=== PATIENT | male | born 1960 | race American Indian/Alaskan Native ===

== ENCOUNTER 2019-04-03 11:07 | Inpatient (IN) | payer OTHER ==
--- NOTE | 2019-04-03 11:28 | Emergency Department Report ---
ED Seizure HPI - General Chief Complaint: Seizure Stated Complaint: SEIZURE/AMS Time Seen by Provider: 04/03/19 11:23 Source: EMS Mode of arrival: Stretcher Limitations: Altered Mental Status - History of Present Illness Initial Comments: Patient is a 59-year-old male that presents emergency room with complaints of altered mental status and seizure. Patient is currently alert and oriented 2. Patient answers most questions appropriate. Patient is confused on situation and date. Patient states she does not report having a seizure. Patient states he doesn't have a seizure history. Patient states she's never sees. Patient denies other symptoms. Patient denies pain. EMS report received. EMS states the patient was at work sitting in his car outside of work and began having a seizure in his car. EMS states that the seizure was witnessed by his coworkers. Patient was postictal initially and mentally responsive upon arrival by EMS. EMS brought the patient to the hospital. No meds were given by EMS. No active seizure activity noted by EMS. MD Complaint: seizure, loss of consciousness, shaking -: Sudden Description of Episode: loss of consciousness, tonic-clonic movement Witnessed:: Yes Trauma: No Seizure History: none Place: work Possible Precipitating Event: none Associated Symptoms: denies other symptoms, confusion. denies: chest pain, cough, diaphoresis, fever/chills, loss of appetite, malaise, rash, shortness of breath, syncope, weakness, tongue injury, shoulder dislocation Treatments Prior to Arrival: none - Related Data Home Medications Medication Instructions Recorded Confirmed Last Taken No Known Home Medications [No 04/03/19 04/03/19 Unknown Reported Home Medications] Allergies Allergy/AdvReac Type Severity Reaction Status Date / Time No Known Allergies Allergy Unverified 04/03/19 13:12 ED Review of Systems ROS: Stated complaint: SEIZURE/AMS Other details as noted in HPI Constitutional: denies: chills, fever Eyes: denies: eye pain, eye discharge, vision change ENT: denies: ear pain, throat pain Respiratory: denies: cough, shortness of breath, wheezing Cardiovascular: denies: chest pain, palpitations Endocrine: no symptoms reported Gastrointestinal: denies: abdominal pain, nausea, diarrhea Genitourinary: denies: urgency, dysuria Musculoskeletal: denies: back pain, joint swelling, arthralgia Skin: denies: rash, lesions Neurological: denies: headache, weakness, paresthesias Psychiatric: denies: anxiety, depression Hematological/Lymphatic: denies: easy bleeding, easy bruising ED Past Medical Hx - Past Medical History Previous Medical History?: No - Surgical History Past Surgical History?: No - Social History Smoking Status: Never Smoker Substance Use Type: Alcohol - Medications Home Medications: Home Medications Medication Instructions Recorded Confirmed Last Taken Type No Known Home Medications [No 04/03/19 04/03/19 Unknown History Reported Home Medications] ED Physical Exam - General Limitations: Altered Mental Status General appearance: alert, in no apparent distress - Head Head exam: Present: atraumatic, normocephalic - Eye Eye exam: Present: normal appearance - ENT ENT exam: Present: mucous membranes moist - Neck Neck exam: Present: normal inspection - Respiratory Respiratory exam: Present: normal lung sounds bilaterally. Absent: respiratory distress - Cardiovascular Cardiovascular Exam: Present: regular rate, normal rhythm. Absent: systolic murmur, diastolic murmur, rubs, gallop - GI/Abdominal GI/Abdominal exam: Present: soft, normal bowel sounds - Rectal Rectal exam: Present: deferred - Extremities Exam Extremities exam: Present: normal inspection - Back Exam Back exam: Present: normal inspection - Neurological Exam Neurological exam: Present: alert, altered, CN II-XII intact - Psychiatric Psychiatric exam: Present: normal affect, normal mood - Skin Skin exam: Present: warm, dry, intact, normal color. Absent: rash ED Course Vital Signs 04/03/19 04/03/19 11:15 13:33 Temperature 98 F Pulse Rate 91 H 90 Respiratory 16 16 Rate Blood Pressure 145/80 Blood Pressure 137/85 [Right] O2 Sat by Pulse 100 100 Oximetry - Reevaluation(s) Reevaluation #1: I discussed all results with patient. Patient agrees plan of care and a dmission. Patient to be admitted to the hospitalist service. 04/03/19 14:29 - Consultations Consultation #1: hospitalists consult. Hospitalist to admit. Bridge orders placed 04/03/19 14:29 ED Medical Decision Making - Lab Data Result diagrams: 04/03/19 13:45 04/03/19 13:45 - EKG Data -: EKG Interpreted by Me EKG shows normal: sinus rhythm, axis, intervals, QRS complexes, ST-T waves Rate: normal - Radiology Data Radiology results: report reviewed, image reviewed CT head/brain wo con INDICATION: Seizure. TECHNIQUE: Routine CT head without contrast. All CT scans at this location are performed using CT dose reduction for ALARA by means of automated exposure control. COMPARISON: None. FINDINGS: BRAIN / INTRACRANIAL CONTENTS: No acute hemorrhage, mass effect, midline shift, or hydrocephalus. No appreciable acute large territorial or lacunar infarct. There is a tiny chronic lacunar infarct in the left frontal periventricular white matter. ORBITS: No significant abnormality of visualized orbits. SINUSES / MASTOIDS: No significant abnormality of visualized sinuses and mastoid air cells. ADDITIONAL FINDINGS: None. IMPRESSION: 1. No acute intracranial abnormality. - Medical Decision Making Is a 59-year-old male that was found in his car seizing by his cold. Patient brought in by EMS. Patient does not have a seizure history. Patient's initial evaluation. The patient was confused and altered. Patient had a new-onset seizure workup to include labs and CT scan. Labs and CT scans unremarkable. Patient admitted to the hospital service. - Differential Diagnosis new seizure. Altered mental status. Critical Care Time: Yes Critical care time in (mins) excluding proc time.: 35 Critical care attestation.: If time is entered above; I have spent that time in minutes in the direct care of this critically ill patient, excluding procedure time. Critical Care Time: 35 minutes ED Disposition Clinical Impression: New onset seizure, Seizure, Confusion Altered mental state Qualifiers: Altered mental status type: unspecified Qualified Code(s): R41.82 - Altered mental status, unspecified Disposition: DC-09 OP ADMIT IP TO THIS HOSP Is pt being admited?: Yes Does the pt Need Aspirin: No Condition: Critical Referrals: PRIMARY CARE, [Primary Care Provider] - 3-5 Days Time of Disposition: 14:59
[2019-04-03] MEDS ORDERED: levETIRAcetam 1000 MG/NS 0.75% 1,000 MG/100 ML BAG IV ONE (12:47)
[2019-04-03] MEDS ORDERED: SODIUM CHLORIDE 0.9% 1000 ML 1,000 ML IV ONE (12:47)
[2019-04-03 13:53] LABS: Bilirubin,Urine NEG (Negative); Blood,Urine NEG (Negative); Color,Urine Yellow (Yellow); Mucus,Urine FEW /HPF; Protein,Urine <15 mg/dL mg/dL (Negative); Urobilinogen,Urine < 2.0 mg/dL (<2.0)
[2019-04-03 14:00] LABS: Basophils % (Auto) 0.3 % (0.0-1.8); Eosinophils % (Auto) 0.6 % (0.0-4.3); Hemoglobin 14.6 gm/dl (11.8-15.2); Lymphocytes # (Auto) 0.9 K/mm3 (1.2-5.4); Lymphocytes % (Auto) 10.5 % (13.4-35.0); Mean Corpuscular HGB Conc 34 % (32-34); Mean Corpuscular Volume 91 fl (84-94); Monocytes # (Auto) 0.4 K/mm3 (0.0-0.8); Monocytes % (Auto) 4.4 % (0.0-7.3); Platelet Count 186 K/mm3 (140-440); Red Blood Count 4.72 M/mm3 (3.65-5.03)
[2019-04-03 14:10] LABS: Amphetamine Screen,Urine PRESUMPTIVE NEGATIVE; Benzodiazepines Screen,Urine PRESUMPTIVE NEGATIVE; Cannabinoid Screen,Urine PRESUMPTIVE NEGATIVE; Cocaine Screen,Urine PRESUMPTIVE NEGATIVE; Methadone Screen,Urine PRESUMPTIVE NEGATIVE; Opiate Screen,Urine PRESUMPTIVE NEGATIVE
[2019-04-03 14:23] LABS: Alanine Aminotransferase 20 units/L (7-56); Albumin 4.5 g/dL (3.9-5); BUN/Creatinine Ratio 10; Blood Urea Nitrogen 11 mg/dL (9-20); Hemolysis Index 6
--- NOTE | 2019-04-03 14:50 | Cat Scan Report ---
CT head/brain wo con INDICATION: Seizure. TECHNIQUE: Routine CT head without contrast. All CT scans at this location are performed using CT dos e reduction for ALARA by means of automated exposure control. COMPARISON: None. FINDINGS: BRAIN / INTRACRANIAL CONTENTS: No acute hemorrhage, mass effect, midline shift, or hydrocephalus. No appreciable acute large territorial or lacunar infarct. There is a tiny chronic lacunar infarct in th e left frontal periventricular white matter. ORBITS: No significant abnormality of visualized orbits. SINUSES / MASTOIDS: No significant abnormality of visualized sinuses and mastoid air cells. ADDITIONAL FINDINGS: None. IMPRESSION: 1. No acute intracranial abnormality. Signer Name: Akhil Rodgers MD Signed: 04/03/2019 2:45 PM Workstation Name: [id number]
[2019-04-03] MEDS ORDERED: HYDROmorphone 1 MG/1 ML INJ IV PRN (20:57)
[2019-04-03] MEDS ORDERED: oxyCODONE /ACETAMINOPHEN 5-325MG TAB PO PRN (20:57)
[2019-04-03] MEDS ORDERED: ACETAMINOPHEN 325 MG TAB PO PRN (20:57)
[2019-04-03] MEDS ORDERED: ZOLPIDEM 5 MG TAB PO PRN (20:57)
[2019-04-03] MEDS ORDERED: ONDANSETRON 4 MG/2 ML INJ IV PRN (20:57)
--- NOTE | 2019-04-03 20:57 | Event Note ---
Date: 04/03/19 See history and physical in the reports New onset Seizures.
[2019-04-04] MEDS: levETIRAcetam 750 MG in DEXTROSE 5% IN WATER 100 ML IV SCH ×3 (00:06→21:50)
[2019-04-04] MEDS: ENOXAPARIN 40 MG/0.4 ML INJ SUB-Q SCH ×2 (00:48→09:54)
[2019-04-04 04:54] LABS: Basophils % (Auto) 0.4 % (0.0-1.8); Eosinophils # (Auto) 0.3 K/mm3 (0.0-0.4); Eosinophils % (Auto) 4.6 % (0.0-4.3); Hematocrit 39.7 % (35.5-45.6); Hemoglobin 13.3 gm/dl (11.8-15.2); Lymphocytes # (Auto) 1.8 K/mm3 (1.2-5.4); Lymphocytes % (Auto) 31.2 % (13.4-35.0); Mean Corpuscular HGB Conc 33 % (32-34); Mean Corpuscular Volume 92 fl (84-94); Monocytes # (Auto) 0.4 K/mm3 (0.0-0.8); Monocytes % (Auto) 6.8 % (0.0-7.3); Platelet Count 167 K/mm3 (140-440); Red Blood Count 4.35 M/mm3 (3.65-5.03); Red Cell Distribution Width 13.7 % (13.2-15.2)
[2019-04-04 05:18] LABS: Albumin 3.8 g/dL (3.9-5); BUN/Creatinine Ratio 9; Blood Urea Nitrogen 9 mg/dL (9-20); Calcium 8.8 mg/dL (8.4-10.2); Hemolysis Index 91
[2019-04-04 05:52] LABS: Alanine Aminotransferase 19 units/L (7-56)
[2019-04-04] MEDS: SODIUM CHLORIDE 0.9% 1000 ML 1,000 ML IV SCH ×2 (07:27→23:38)
--- NOTE | 2019-04-04 08:14 | History and Physical Report ---
CHIEF COMPLAINT: New onset seizures one hour ago. HISTORY OF PRESENT ILLNESS: A 59-year-old male with no significant past medical history apparently had a seizures which were tonic-clonic in nature. The patient was at work sitting in his car outside of work and began having seizures in his car. The seizure was witnessed by his coworkers. The patient was confused after the seizures. No tongue biting. Seizures lasted for about 1 minute. The patient was brought in by EMS. The patient alert and talking well during my examination. PAST MEDICAL HISTORY: None. PAST SURGICAL HISTORY: None. SOCIAL HISTORY: Does not smoke. Alcohol was occasionally. FAMILY HISTORY: Hypertension. REVIEW OF SYSTEMS: Significant for new onset seizures 1 hour ago prior to admission to the Emergency Room. Tonic-clonic in nature as per description by the coworkers. Otherwise, review of systems negative. No confusion. PHYSICAL EXAMINATION: GENERAL: A young elderly male, cooperative during examination. VITAL SIGNS: Temperature is 97.9, pulse is 51, respirations are 20, blood pressure 109/84. HEENT: Unremarkable. Pupils equal and reactive. NECK: Supple. No lymphadenopathy, no thyromegaly. LUNGS: Clear to auscultation and percussion. Good air entry. CARDIOVASCULAR: S1, S2 heard. No gallop, no murmur, no rub. Apical impulse in left fifth intercostal space and midclavicular line. ABDOMEN: Soft and benign. No hepatosplenomegaly. No guarding, no rigidity. Hernial orifices are normal. EXTREMITIES: Good pedal pulses. No pedal edema. CENTRAL NERVOUS SYSTEM: Alert and oriented x 4, nonfocal exam. SKIN: Normal. LABORATORY AND IMAGING STUDIES: White count is 8400, H and H is 14.6, hematocrit is 43. Electrolytes are normal. Glucose is 149. A1c is 5.3. Urine is negative. CT of the head is no acute findings. ASSESSMENT AND PLAN: 1. New onset seizures. The patient initiated on IV Keppra. The main issue is that the patient cannot drive being on anti-seizure medications. We will defer to Neurology. Neurology consult requested. The patient may need EEG studies. Continue IV Keppra to be transitioned to p.o. Keppra tomorrow. 2. Deep venous thrombosis prophylaxis, Lovenox 40 mg subcutaneous daily. In summary, the patient has new onset seizures and no other comorbid problems like hypertension, diabetes. A1c is 5.3. JOB# [id number] VSCharlie/VANNESSA HONG
--- NOTE | 2019-04-04 16:32 | Progress Note ---
Assessment and Plan Assessment and plan: --New-onset seizures; Seizure precautions, Keppra initiated by admitting physician Follow up neurology evaluation and recommendations EEG, no driving, further w/u per neuro --Obesity; BMI 34.8 Patient advised weight reduction when medically stable --DVT prophylaxis; Lovenox Follow up neurology evaluation and recommendations Possible discharge in 1-2 days if stable Plan of care is reviewed with the patient and his nurse History Interval history: Patient seen and examined medical records reviewed Admitted with new onset seizures, no new episodes of seizures since admission Patient is alert awake oriented 3 No new complaints Vital signs reviewed Hospitalist Physical - Constitutional Vitals: Temp Pulse Resp BP Pulse Ox 98.2 F 59 L 16 112/55 99 04/04/19 11:16 04/04/19 11:16 04/04/19 11:16 04/04/19 11:16 04/04/19 11:16 General appearance: Present: no acute distress, well-nourished, obese - EENT Eyes: Present: PERRL, EOM intact - Neck Neck: Present: supple, normal ROM - Respiratory Respiratory effort: normal Respiratory: bilateral: diminished, negative: rales, rhonchi, wheezing - Cardiovascular Rhythm: regular Heart Sounds: Present: S1 & S2 - Extremities Extremities: no ischemia, No edema - Abdominal General gastrointestinal: soft, non-tender, non-distended, normal bowel sounds - Integumentary Integumentary: Present: clear, warm - Psychiatric Psychiatric: appropriate mood/affect, cooperative - Neurologic Neurologic: CNII-XII intact, moves all extremities Results - Labs CBC & Chem 7: 04/04/19 04:06 04/04/19 04:06 Labs: Laboratory Last Values WBC 5.7 K/mm3 (4.5-11.0) 04/04/19 04:06 RBC 4.35 M/mm3 (3.65-5.03) 04/04/19 04:06 Hgb 13.3 gm/dl (11.8-15.2) 04/04/19 04:06 Hct 39.7 % (35.5-45.6) 04/04/19 04:06 MCV 92 fl (84-94) 04/04/19 04:06 MCH 31 pg (28-32) 04/04/19 04:06 MCHC 33 % (32-34) 04/04/19 04:06 RDW 13.7 % (13.2-15.2) 04/04/19 04:06 Plt Count 167 K/mm3 (140-440) 04/04/19 04:06 Lymph % (Auto) 31.2 % (13.4-35.0) 04/04/19 04:06 Dupage % (Auto) 6.8 % (0.0-7.3) 04/04/19 04:06 Eos % (Auto) 4.6 % (0.0-4.3) H 04/04/19 04:06 Baso % (Auto) 0.4 % (0.0-1.8) 04/04/19 04:06 Lymph # 1.8 K/mm3 (1.2-5.4) 04/04/19 04:06 Dupage # 0.4 K/mm3 (0.0-0.8) 04/04/19 04:06 Eos # 0.3 K/mm3 (0.0-0.4) 04/04/19 04:06 Baso # 0.0 K/mm3 (0.0-0.1) 04/04/19 04:06 Seg Neutrophils % 57.0 % (40.0-70.0) 04/04/19 04:06 Seg Neutrophils # 3.2 K/mm3 (1.8-7.7) 04/04/19 04:06 Sodium 141 mmol/L (137-145) 04/04/19 04:06 Potassium 4.1 mmol/L (3.6-5.0) 04/04/19 04:06 Chloride 105.7 mmol/L (98-107) 04/04/19 04:06 Carbon Dioxide 22 mmol/L (22-30) 04/04/19 04:06 Anion Gap 17 mmol/L 04/04/19 04:06 BUN 9 mg/dL (9-20) 04/04/19 04:06 Creatinine 1.0 mg/dL (0.8-1.5) 04/04/19 04:06 Estimated GFR > 60 ml/min 04/04/19 04:06 BUN/Creatinine Ratio 9 % 04/04/19 04:06 Glucose 101 mg/dL (75-100) H 04/04/19 04:06 POC Glucose 149 (70-105) H 04/03/19 11:25 Hemoglobin A1c 5.3 % (4-6) 04/03/19 13:45 Calcium 8.8 mg/dL (8.4-10.2) 04/04/19 04:06 Total Bilirubin 0.30 mg/dL (0.1-1.2) 04/04/19 04:06 AST 34 units/L (5-40) 04/04/19 04:06 ALT 19 units/L (7-56) 04/04/19 04:06 Alkaline Phosphatase 77 units/L (35-129) 04/04/19 04:06 Total Protein 6.7 g/dL (6.3-8.2) 04/04/19 04:06 Albumin 3.8 g/dL (3.9-5) L 04/04/19 04:06 Albumin/Globulin Ratio 1.3 % 04/04/19 04:06 Urine Color Yellow (Yellow) 04/03/19 13:34 Urine Turbidity Clear (Clear) 04/03/19 13:34 Urine pH 6.0 (5.0-7.0) 04/03/19 13:34 Ur Specific Lorraine 1.015 (1.003-1.030) 04/03/19 13:34 Urine Protein <15 mg/dl mg/dL (Negative) 04/03/19 13:34 Urine Glucose (UA) Neg mg/dL (Negative) 04/03/19 13:34 Urine Ketones Neg mg/dL (Negative) 04/03/19 13:34 Urine Blood Neg (Negative) 04/03/19 13:34 Urine Nitrite Neg (Negative) 04/03/19 13:34 Urine Bilirubin Neg (Negative) 04/03/19 13:34 Urine Urobilinogen < 2.0 mg/dL (<2.0) 04/03/19 13:34 Ur Leukocyte Esterase Neg (Negative) 04/03/19 13:34 Urine WBC (Auto) 1.0 /HPF (0.0-6.0) 04/03/19 13:34 Urine RBC (Auto) 1.0 /HPF (0.0-6.0) 04/03/19 13:34 Urine Mucus Few /HPF 04/03/19 13:34 Urine Opiates Screen Presumptive negative 04/03/19 13:34 Urine Methadone Screen Presumptive negative 04/03/19 13:34 Ur Barbiturates Screen Presumptive negative 04/03/19 13:34 Ur Phencyclidine Scrn Presumptive negative 04/03/19 13:34 Ur Amphetamines Screen Presumptive negative 04/03/19 13:34 U Benzodiazepines Scrn Presumptive negative 04/03/19 13:34 Urine Cocaine Screen Presumptive negative 04/03/19 13:34 U Marijuana (THC) Screen Presumptive negative 04/03/19 13:34 Drugs of Abuse Note Disclamer 04/03/19 13:34 Plasma/Serum Alcohol < 0.01 % (0-0.07) 04/03/19 13:45 Active Medications - Current Medications Current Medications: Generic Name Dose Route Start Last Admin Trade Name Freq PRN Reason Stop Dose Admin Acetaminophen 650 mg 04/03/19 20:57 Tylenol PO Q4H PRN Pain MILD(1-3)/Fever >100.5/CAVAZOS Enoxaparin Sodium 40 mg 04/03/19 21:00 04/04/19 09:54 Enoxaparin SUB-Q 40 mg QDAY JHON Administration Hydromorphone HCl 0.5 mg 04/03/19 20:57 Dilaudid IV Q3H PRN Pain , Severe (7-10) Sodium Chloride 1,000 mls @ 75 mls/hr 04/03/19 21:00 04/04/19 07:27 Nacl 0.9% 1000 Ml IV 75 mls/hr DIRECT JHON Administration Levetiracetam 750 mg/ Dextrose 107.5 mls @ 400 mls/hr 04/03/19 22:00 04/04/19 09:54 IV 400 mls/hr Q12HR JHON Administration Ondansetron HCl 4 mg 04/03/19 20:57 Zofran IV Q3H PRN Nausea And Vomiting Oxycodone/Acetaminophen 1 tab 04/03/19 20:57 Percocet 5/325 PO Q6H PRN Pain, Moderate (4-6) Sodium Chloride 10 ml 04/03/19 22:00 04/04/19 09:55 Sodium Chloride Flush Syringe 10 Ml IV 10 ml BID JHON Administration Sodium Chloride 10 ml 04/03/19 20:57 Sodium Chloride Flush Syringe 10 Ml IV PRN PRN LINE FLUSH Zolpidem Tartrate 5 mg 04/03/19 20:57 Ambien PO QHS PRN Insomnia
--- NOTE | 2019-04-04 17:08 | Consultation ---
History of Present Illness Consult date: 04/04/19 Reason for Consult: Seizure Chief complaint: Seizure History of present illness: Patient is a 59 y/o man w/ no known PMH. He presented yesterday after reportedly having a generalized tonic clonic seizure while at work. Patient was sitting in his car at work, when he was seen by co-workers to be having a seizure, which lasted about 1 minute. He was then brought to [facility]. Patient continues to feel "wiped out" and tired, however has returned to baseline mental status. He does not have any history of seizures in the past. Patient states that he has been having new onset intermittent right temporal CAVAZOS over the past 2 months. CAVAZOS described as intermittent, mild, right temporal, no associated symptoms. Past History Past Medical History: No medical history Social history: Lives alone Family history: no significant family history Medications and Allergies Allergies Allergy/AdvReac Type Severity Reaction Status Date / Time No Known Allergies Allergy Unverified 04/03/19 13:12 Home Medications Medication Instructions Recorded Confirmed Last Taken Type No Known Home Medications [No 04/03/19 04/03/19 Unknown History Reported Home Medications] Active Meds: Active Medications Acetaminophen (Tylenol) 650 mg PO Q4H PRN PRN Reason: Pain MILD(1-3)/Fever >100.5/CAVAZOS Enoxaparin Sodium (Enoxaparin) 40 mg SUB-Q QDAY [facility] Last Admin: 04/04/19 09:54 Dose: 40 mg Documented by: Hydromorphone HCl (Dilaudid) 0.5 mg IV Q3H PRN PRN Reason: Pain , Severe (7-10) Sodium Chloride (Nacl 0.9% 1000 Ml) 1,000 mls @ 75 mls/hr IV DIRECT [facility] Last Admin: 04/04/19 07:27 Dose: 75 mls/hr Documented by: Levetiracetam 750 mg/ Dextrose 107.5 mls @ 400 mls/hr IV Q12HR [facility] Last Admin: 04/04/19 09:54 Dose: 400 mls/hr Documented by: Ondansetron HCl (Zofran) 4 mg IV Q3H PRN PRN Reason: Nausea And Vomiting Oxycodone/Acetaminophen (Percocet 5/325) 1 tab PO Q6H PRN PRN Reason: Pain, Moderate (4-6) Sodium Chloride (Sodium Chloride Flush Syringe 10 Ml) 10 ml IV BID JHON Last Admin: 04/04/19 09:55 Dose: 10 ml Documented by: Sodium Chloride (Sodium Chloride Flush Syringe 10 Ml) 10 ml IV PRN PRN PRN Reason: LINE FLUSH Zolpidem Tartrate (Ambien) 5 mg PO QHS PRN PRN Reason: Insomnia Review of Systems All systems: negative Neurological: seizures Physical Examination - Vital Signs Vital Signs: Vital Signs Temp Pulse Resp BP Pulse Ox 98 F 91 H 16 145/80 100 04/03/19 11:15 04/03/19 11:15 04/03/19 11:15 04/03/19 11:15 04/03/19 11:15 - Physical Exam Narrative exam: Patient is alert, awake, oriented x4, follows complex commands. PERRL, VFF, EOMI, no facial weakness noted, tongue midline, b/l intact to LT. B/l intact to LT in all extremities. 2+ reflexes throughout. 5/5 strength in all extremities. b/l intact to FTN and HTS. No dysarthria or aphasia noted. - Constitutional General appearance: comfortable - EENT EENT: Present: ATNC, PERRL, mucous membranes moist, hearing intact, vision intact - Respiratory Respiratory: Present: lungs clear, normal breath sounds - Cardiovascular Cardiovascular: Present: regular rate, normal S1, normal S2 Extremities: Present: no clubbing, cyanosis, no inflammation - Gastrointestinal Gastrointestinal: Present: normoactive bowel sounds, soft, non-tender - Integumentary Integumentary: Present: normal - Musculoskeletal Musculoskeletal: Present: no fluid collection, no pain - Psychiatric Psychiatric: Present: mood/affect appropriate Results - Laboratory Findings CBC and BMP: 04/04/19 04:06 04/04/19 04:06 Abnormal Lab Findings: Abnormal Labs 04/03/19 04/03/19 04/03/19 11:25 13:45 13:45 Lymph % (Auto) 10.5 L Eos % (Auto) Lymph # 0.9 L Seg Neutrophils % 84.2 H Carbon Dioxide 21 L Glucose POC Glucose 149 H Albumin 04/04/19 04/04/19 04:06 04:06 Lymph % (Auto) Eos % (Auto) 4.6 H Lymph # Seg Neutrophils % Carbon Dioxide Glucose 101 H POC Glucose Albumin 3.8 L Assessment and Plan Patient is a 59 y/o man w/ no known PMH. He presented yesterday after reportedly having a generalized tonic clonic seizure while at work. According to the patient's clinical findings, it is possible that he has had a seizure. Plan: 1. Seizure: - CT head unremarkable - EEG did not show any seizures or epileptiform activity - Discussed option of starting keppra at this time with patient, and he is agreeable to starting it. Discussed adverse effects, risks/benefits. - Keppra 750mg BID. - Check MRI brain w/wo, as patient has c/o recent onset of right temporal headaches. Also, new onset seizures at this age would warrant further imaging to rule out any intra-cranial etiology. - Discussed with patient regarding no driving until cleared by DMV/DPS, and patient understood and accepted this. Further discussed seizure precautions with patient. - If patient has seizure, recommend Ativan 1mg IV stat. Please call primary and neurology stat if patient has seizures. - Will continue to monitor patient. Thank you for allowing me to take part in the care of this patient. Efrem De La Rosa MD Neurology
--- NOTE | 2019-04-04 17:19 | Electroencephalogram Report ---
Electroencephalogram EEG Date of exam: 04/04/19 History: Patient is a 59 y/o man w/ no known PMH. He presented yesterday after reportedly having a generalized tonic clonic seizure while at work. Impression: 1. No seizures or epileptofirm activity noted 2. Significant movement artifact noted. Description: The waking background shows an appropriate organization with well-defined anterior posterior voltage and frequency gradients. Posteriorly, there is a well-developed alpha rhythm of [8] Hz which is symmetrical and bilaterally reactive. Anteriorly, there is a pattern of lower voltage and slightly irregular theta and beta range frequencies. During drowsiness, there is attenuation of the background rhythms. There is significant movement artifact noted. Photic stimulation and hyperventilation were not performed. Throughout, the recording there are no epileptiform abnormalities, focal or lateralizing features, or significant interhemispheric findings. Interpretation: A normal EEG does not rule out seizures. Recommend clinical correlation.
[2019-04-05 06:06] LABS: BUN/Creatinine Ratio 12; Blood Urea Nitrogen 11 mg/dL (9-20); Calcium 8.6 mg/dL (8.4-10.2); Hemolysis Index 102
[2019-04-05] MEDS: levETIRAcetam 750 MG in DEXTROSE 5% IN WATER 100 ML IV SCH ×2 (10:08→21:32)
[2019-04-05] MEDS: ENOXAPARIN 40 MG/0.4 ML INJ SUB-Q SCH (10:08)
--- NOTE | 2019-04-05 11:02 | Progress Note ---
Assessment and Plan Patient is a 59 y/o man w/ no known PMH. He presented yesterday after reportedly having a generalized tonic clonic seizure while at work. According to the patient's clinical findings, it is possible that he has had a seizure. Plan: 1. Seizure: - CT head unremarkable - EEG did not show any seizures or epileptiform activity - Discussed option of starting keppra at this time with patient, and he is agreeable to starting it. Discussed adverse effects, risks/benefits. - Cont. Keppra 750mg BID. - Check MRI brain w/wo, as patient has c/o recent onset of right temporal headaches. Also, new onset seizures at this age would warrant further imaging to rule out any intra-cranial etiology. - MRI pending. - Discussed with patient regarding no driving until cleared by DMV/DPS, and patient understood and accepted this. Further discussed seizure precautions with patient. - If patient has seizure, recommend Ativan 1mg IV stat. Please call primary and neurology stat if patient has seizures. - Will sign off as I am not covering the neurology service over the weekend. Recommend for neurologist covering weekend to be consulted for further neurologic monitoring and management. Thank you for allowing me to take part in the care of this patient. Efrem De La Rosa MD Neurology Subjective Date of service: 04/05/19 Principal diagnosis: Seizure Interval history: No acute events overnight. Objective - Exam Narrative Exam: Patient is alert, awake, oriented x4, follows complex commands. PERRL, VFF, EOMI, no facial weakness noted, tongue midline, b/l intact to LT. B/l intact to LT in all extremities. 2+ reflexes throughout. 5/5 strength in all extremities. b/l intact to FTN and HTS. No dysarthria or aphasia noted. - Vital Sign Vital Signs - 12hr 04/04/19 04/05/19 23:36 05:39 Temperature 98.1 F 98.0 F Pulse Rate 49 L 47 L Respiratory 18 18 Rate Blood Pressure 104/55 124/59 O2 Sat by Pulse 98 99 Oximetry - General Apperance Constitutional: comfortable - EENT EENT: ATNC, PERRL, mucous membranes moist, hearing intact, vision intact - Respiratory Respiratory: lungs clear, normal breath sounds - Cardiovascular Cardiovascular: regular rate, normal S1, normal S2 Extremities: no clubbing, cyanosis, no inflammation - Gastrointestinal Gastrointestinal: normoactive bowel sounds, soft, non-tender - Integumentary Integumentary: normal - Musculoskeletal Musculoskeletal: no fluid collection, no pain - Psychiatric Psychiatric: mood/affect appropriate - Laboratory Findings CBC and BMP: 04/04/19 04:06 04/05/19 Unknown Abnormal Lab Findings: Abnormal Labs 04/03/19 04/03/19 04/03/19 11:25 13:45 13:45 Lymph % (Auto) 10.5 L Eos % (Auto) Lymph # 0.9 L Seg Neutrophils % 84.2 H Chloride Carbon Dioxide 21 L Glucose POC Glucose 149 H Albumin 04/04/19 04/04/19 04/05/19 04:06 04:06 Unknown Lymph % (Auto) Eos % (Auto) 4.6 H Lymph # Seg Neutrophils % Chloride 107.3 H Carbon Dioxide Glucose 101 H POC Glucose Albumin 3.8 L
--- NOTE | 2019-04-05 11:54 | Magnetic Resonance Report ---
MRI BRAIN WITHOUT AND WITH CONTRAST INDICATION / CLINICAL INFORMATION: Seizure. TECHNIQUE: Multiplanar, multisequence MR images of the brain were obtained. Patient received 17 mL of IV ProHanc e. COMPARISON: Head CT dated 04/03/2019. FINDINGS: BRAIN / INTRACRANIAL CONTENTS: There is abnormal gyral swelling of the mesial left temporal lobe with increased T2/FLAIR signal. There are patchy foci of enhancement which appear to be cortically based in the region of signal abnormality, measuring up to about 8 mm. There is no associated restricted di ffusion. The remainder of the brain otherwise appears without acute abnormality. 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 There is mild chronic microangiopathic change in the cerebral white matter. CRANIOCERVICAL JUNCTION: No significant abnormality. VASCULAR FLOW-VOIDS: No significant abnormality. ORBITS: No significant abnormality of visualized orbits. SINUSES / MASTOIDS: No significant abnormality of visualized sinuses and mastoid air cells. ADDITIONAL FINDINGS: None. IMPRESSION: 1. Abnormal appearance of the mesial right temporal lobe with gyral swelling and edema as well as pat brando areas of cortical enhancement. Given the appearance, herpetic encephalitis needs to be excluded b y laboratory testing. Additionally, acyclovir should probably be administered pending laboratory resu lts. Other considerations would include status epilepticus, limbic encephalitis, and mesial temporal lobe neoplasm. Signer Name: Akhil Rodgers MD Signed: 04/05/2019 11:50 AM Workstation Name: [id number]
--- NOTE | 2019-04-05 14:56 | Progress Note ---
Assessment and Plan Assessment and plan: --New-onset seizures; no new episodes since admission Seizure precautions, Keppra initiated by admitting physician Follow up neurology evaluation and recommendations EEG, no driving, neurology following --Abnormal MRI findings; ? Herpetic encephalitis Consult ID, recommended stat lumbar puncture Further workup in progress --Obesity; BMI 34.8 Patient advised weight reduction when medically stable --DVT prophylaxis; Lovenox Follow ID evaluation and recommendations Possible discharge in 1-2 days if stable Plan of care is reviewed with the patient and his nurse History Interval history: Patient seen and examined medical records reviewed No new episodes of seizures, patient feels better Wants to go home, had MRI this morning. No new complaints Vital signs noted Hospitalist Physical - Constitutional Vitals: Temp Pulse Resp BP Pulse Ox 97.6 F 48 L 22 139/69 99 04/05/19 11:44 04/05/19 11:44 04/05/19 11:44 04/05/19 11:44 04/05/19 11:44 General appearance: Present: no acute distress, well-nourished, obese - EENT Eyes: Present: PERRL, EOM intact - Neck Neck: Present: supple, normal ROM - Respiratory Respiratory effort: normal Respiratory: bilateral: diminished, negative: rales, rhonchi, wheezing - Cardiovascular Rhythm: regular Heart Sounds: Present: S1 & S2 - Extremities Extremities: no ischemia, No edema Peripheral Pulses: within normal limits - Abdominal General gastrointestinal: soft, non-tender, non-distended, normal bowel sounds - Integumentary Integumentary: Present: clear, warm - Psychiatric Psychiatric: appropriate mood/affect, cooperative - Neurologic Neurologic: CNII-XII intact, moves all extremities Results - Labs CBC & Chem 7: 04/04/19 04:06 04/05/19 Unknown Labs: Laboratory Last Values WBC 5.7 K/mm3 (4.5-11.0) 04/04/19 04:06 RBC 4.35 M/mm3 (3.65-5.03) 04/04/19 04:06 Hgb 13.3 gm/dl (11.8-15.2) 04/04/19 04:06 Hct 39.7 % (35.5-45.6) 04/04/19 04:06 MCV 92 fl (84-94) 04/04/19 04:06 MCH 31 pg (28-32) 04/04/19 04:06 MCHC 33 % (32-34) 04/04/19 04:06 RDW 13.7 % (13.2-15.2) 04/04/19 04:06 Plt Count 167 K/mm3 (140-440) 04/04/19 04:06 Lymph % (Auto) 31.2 % (13.4-35.0) 04/04/19 04:06 [place] % (Auto) 6.8 % (0.0-7.3) 04/04/19 04:06 Eos % (Auto) 4.6 % (0.0-4.3) H 04/04/19 04:06 Baso % (Auto) 0.4 % (0.0-1.8) 04/04/19 04:06 Lymph # 1.8 K/mm3 (1.2-5.4) 04/04/19 04:06 [place] # 0.4 K/mm3 (0.0-0.8) 04/04/19 04:06 Eos # 0.3 K/mm3 (0.0-0.4) 04/04/19 04:06 Baso # 0.0 K/mm3 (0.0-0.1) 04/04/19 04:06 Seg Neutrophils % 57.0 % (40.0-70.0) 04/04/19 04:06 Seg Neutrophils # 3.2 K/mm3 (1.8-7.7) 04/04/19 04:06 Sodium 140 mmol/L (137-145) 04/05/19 Unknown Potassium 4.5 mmol/L (3.6-5.0) 04/05/19 Unknown Chloride 107.3 mmol/L (98-107) H 04/05/19 Unknown Carbon Dioxide 22 mmol/L (22-30) 04/05/19 Unknown Anion Gap 15 mmol/L 04/05/19 Unknown BUN 11 mg/dL (9-20) 04/05/19 Unknown Creatinine 0.9 mg/dL (0.8-1.5) 04/05/19 Unknown Estimated GFR > 60 ml/min 04/05/19 Unknown BUN/Creatinine Ratio 12 % 04/05/19 Unknown Glucose 91 mg/dL (75-100) 04/05/19 Unknown POC Glucose 149 (70-105) H 04/03/19 11:25 Hemoglobin A1c 5.3 % (4-6) 04/03/19 13:45 Calcium 8.6 mg/dL (8.4-10.2) 04/05/19 Unknown Magnesium 2.00 mg/dL (1.7-2.3) 04/05/19 Unknown Total Bilirubin 0.30 mg/dL (0.1-1.2) 04/04/19 04:06 AST 34 units/L (5-40) 04/04/19 04:06 ALT 19 units/L (7-56) 04/04/19 04:06 Alkaline Phosphatase 77 units/L (35-129) 04/04/19 04:06 Total Protein 6.7 g/dL (6.3-8.2) 04/04/19 04:06 Albumin 3.8 g/dL (3.9-5) L 04/04/19 04:06 Albumin/Globulin Ratio 1.3 % 04/04/19 04:06 Urine Color Yellow (Yellow) 04/03/19 13:34 Urine Turbidity Clear (Clear) 04/03/19 13:34 Urine pH 6.0 (5.0-7.0) 04/03/19 13:34 Ur Specific [place] 1.015 (1.003-1.030) 04/03/19 13:34 Urine Protein <15 mg/dl mg/dL (Negative) 04/03/19 13:34 Urine Glucose (UA) Neg mg/dL (Negative) 04/03/19 13:34 Urine Ketones Neg mg/dL (Negative) 04/03/19 13:34 Urine Blood Neg (Negative) 04/03/19 13:34 Urine Nitrite Neg (Negative) 04/03/19 13:34 Urine Bilirubin Neg (Negative) 04/03/19 13:34 Urine Urobilinogen < 2.0 mg/dL (<2.0) 04/03/19 13:34 Ur Leukocyte Esterase Neg (Negative) 04/03/19 13:34 Urine WBC (Auto) 1.0 /HPF (0.0-6.0) 04/03/19 13:34 Urine RBC (Auto) 1.0 /HPF (0.0-6.0) 04/03/19 13:34 Urine Mucus Few /HPF 04/03/19 13:34 Urine Opiates Screen Presumptive negative 04/03/19 13:34 Urine Methadone Screen Presumptive negative 04/03/19 13:34 Ur Barbiturates Screen Presumptive negative 04/03/19 13:34 Ur Phencyclidine Scrn Presumptive negative 04/03/19 13:34 Ur Amphetamines Screen Presumptive negative 04/03/19 13:34 U Benzodiazepines Scrn Presumptive negative 04/03/19 13:34 Urine Cocaine Screen Presumptive negative 04/03/19 13:34 U Marijuana (THC) Screen Presumptive negative 04/03/19 13:34 Drugs of Abuse Note Disclamer 04/03/19 13:34 Plasma/Serum Alcohol < 0.01 % (0-0.07) 04/03/19 13:45 Active Medications - Current Medications Current Medications: Generic Name Dose Route Start Last Admin Trade Name Freq PRN Reason Stop Dose Admin Acetaminophen 650 mg 04/03/19 20:57 Tylenol PO Q4H PRN Pain MILD(1-3)/Fever >100.5/CAVAZOS Enoxaparin Sodium 40 mg 04/03/19 21:00 04/05/19 10:08 Enoxaparin SUB-Q 40 mg QDAY JHON Administration Hydromorphone HCl 0.5 mg 04/03/19 20:57 Dilaudid IV Q3H PRN Pain , Severe (7-10) Sodium Chloride 1,000 mls @ 75 mls/hr 04/03/19 21:00 04/04/19 23:38 Nacl 0.9% 1000 Ml IV 75 mls/hr DIRECT JHON Administration Levetiracetam 750 mg/ Dextrose 107.5 mls @ 400 mls/hr 04/03/19 22:00 04/05/19 10:08 IV 400 mls/hr Q12HR JHON Administration Ondansetron HCl 4 mg 04/03/19 20:57 Zofran IV Q3H PRN Nausea And Vomiting Oxycodone/Acetaminophen 1 tab 04/03/19 20:57 Percocet 5/325 PO Q6H PRN Pain, Moderate (4-6) Sodium Chloride 10 ml 04/03/19 22:00 04/05/19 10:08 Sodium Chloride Flush Syringe 10 Ml IV 10 ml BID JHON Administration Sodium Chloride 10 ml 04/03/19 20:57 Sodium Chloride Flush Syringe 10 Ml IV PRN PRN LINE FLUSH Zolpidem Tartrate 5 mg 04/03/19 20:57 Ambien PO QHS PRN Insomnia
--- NOTE | 2019-04-05 15:01 | Consultation ---
History of Present Illness - Reason for Consult Consult date: 04/05/19 New onset seizure. Concern for herpetic encephalitis on MRI. Requesting physician: ALICIA IVY - History of Present Illness The patient is a 59-year-old male with no past medical history who presented to the hospital on 04/03/2019 after he had a seizure while at work. He has been experiencing a right-sided headache for the past few weeks. Denies fevers or chills. Denies any weight loss. Initial CT head was unremarkable. Was started on Keppra. Neurology was consulted, EEG did not show any seizures or epileptiform activity. MRI brain with and without contrast showed R temporal cortical enh ancement concerning for possible HSV encephalitis, hence infectious diseases was consulted. Denies any drug use. H/O heterosexual contact, no h/o STDs or HIV. Review of Systems: General: no fevers,chills or rigors HEENT: no new visual disturbance Respiratory: No cough, sputum, hemoptysis or shortness of breath Cardiovascular: No chest pain, syncope Gastrointestinal: No nausea, vomiting or diarrhea Genitourinary: No dysuria or hematuria Musculoskeletal: No new or worsening neck pain or back pain Neurologic: + headaches and seizures Hematologic: No easy bruising or bleeding Endocrine: No night sweats or acute weight loss Skin: negative for rash, jaundice Psychiatric: No suicidal or homicidal ideation Past History Past Medical History: No medical history Social history: Lives alone Family history: no significant family history Medications and Allergies Allergies Allergy/AdvReac Type Severity Reaction Status Date / Time No Known Allergies Allergy Unverified 04/03/19 13:12 Home Medications Medication Instructions Recorded Confirmed Last Taken Type No Known Home Medications [No 04/03/19 04/03/19 Unknown History Reported Home Medications] Active Meds: Active Medications Acetaminophen (Tylenol) 650 mg PO Q4H PRN PRN Reason: Pain MILD(1-3)/Fever >100.5/CAVAZOS Enoxaparin Sodium (Enoxaparin) 40 mg SUB-Q QDAY JHON Last Admin: 04/05/19 10:08 Dose: 40 mg Documented by: Hydromorphone HCl (Dilaudid) 0.5 mg IV Q3H PRN PRN Reason: Pain , Severe (7-10) Sodium Chloride (Nacl 0.9% 1000 Ml) 1,000 mls @ 75 mls/hr IV DIRECT [facility] Last Admin: 04/04/19 23:38 Dose: 75 mls/hr Documented by: Levetiracetam 750 mg/ Dextrose 107.5 mls @ 400 mls/hr IV Q12HR [facility] Last Admin: 04/05/19 10:08 Dose: 400 mls/hr Documented by: Ondansetron HCl (Zofran) 4 mg IV Q3H PRN PRN Reason: Nausea And Vomiting Oxycodone/Acetaminophen (Percocet 5/325) 1 tab PO Q6H PRN PRN Reason: Pain, Moderate (4-6) Sodium Chloride (Sodium Chloride Flush Syringe 10 Ml) 10 ml IV BID [facility] Last Admin: 04/05/19 10:08 Dose: 10 ml Documented by: Sodium Chloride (Sodium Chloride Flush Syringe 10 Ml) 10 ml IV PRN PRN PRN Reason: LINE FLUSH Zolpidem Tartrate (Ambien) 5 mg PO QHS PRN PRN Reason: Insomnia Physical Examination - Physical Exam Narrative exam: Physical Exam: Constitutional: Alert, cooperative. No acute distress Head, Ears, Nose: Normocephalic, atraumatic. External ears, nose normal Eyes: Conjunctivae/corneas clear. No icterus. No ptosis. Neck: Supple, no meningeal signs Oral: no thrush Cardiovascular: S1, S2 normal. Respiratory: Good air entry, clear to auscultation bilaterally GI: Soft, non-tender; bowel sounds normal. No peritoneal signs Musculoskeletal: No pedal edema, no cyanosis. Skin: No rash or abscess Hem/Lymphatic: No palpable cervical or supraclavicular nodes. No lymphangitis Psych: Mood ok. Affect normal Neurological: Awake, alert, oriented. No gross abnormality - Constitutional Vitals: Vital Signs Temp Pulse Resp BP Pulse Ox 97.6 F 48 L 22 139/69 99 04/05/19 11:44 04/05/19 11:44 04/05/19 11:44 04/05/19 11:44 04/05/19 11:44 Temperature -Last 24 Hours Temperature 97.6 F Temperature 98.0 F Temperature 98.1 F Temperature 99.0 F Results - Labs CBC & Chem 7: 04/04/19 04:06 04/05/19 Unknown Labs: Abnormal lab results 10/25/19 Range/Units Unknown Chloride 107.3 H (98-107) mmol/L - Imaging and Cardiology CT Scan - head: report reviewed, image reviewed (no acute abnormality noted.) MRI - head: report reviewed, image reviewed (Right temporal edema and patchy areas of cortical enhancement. ) Assessment and Plan Cultures: none A/P: 59-year-old male with no past medical history who presented to the hospital on 04/03/2019 after he had a seizure while at work: 1) New onset seizure with temporal lobe enhancement: Has no fever or leucocytosis. Headache has been ongoing for several weeks. 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 Recs: stat LP with CSF studies including CSF for HSV PCR (orders placed for CSF studies) HIV, RPR also ordered IV acyclovir started 10 mg/kg q8 hrs D/W Neurology (If CSF HSV PCR is negative, may need transfer for neurosurgery eval) and with Dr. Ivy. Nola Trejo MD, FACP [facility] C: [phone] O: [phone] F: [phone]
[2019-04-05 16:11] LABS: INR 1.03 (0.87-1.13)
[2019-04-05 16:12] LABS: Partial Thromboplastin Time 33.7 Sec. (24.2-36.6)
[2019-04-05] MEDS: SODIUM CHLORIDE 0.9% IV SCH ×2 (17:12→22:44)
[2019-04-05] MEDS: SODIUM CHLORIDE 0.9% 1000 ML 1,000 ML IV SCH (17:12)
[2019-04-05] MEDS: ACYCLOVIR IV SCH ×2 (17:12→22:44)
[2019-04-06] MEDS: SODIUM CHLORIDE 0.9% IV SCH ×3 (05:49→22:15)
[2019-04-06] MEDS: ACYCLOVIR IV SCH ×3 (05:49→22:15)
[2019-04-06] MEDS: ENOXAPARIN 40 MG/0.4 ML INJ SUB-Q SCH (09:39)
--- NOTE | 2019-04-06 10:24 | Progress Note ---
Assessment and Plan Assessment and plan: --Abnormal MRI findings; ? Herpetic encephalitis Consult ID, recommended stat lumbar puncture Further workup in progress --New-onset seizures; no new episodes since admission Seizure precautions, Keppra initiated by admitting physician Follow up neurology evaluation and recommendations EEG, no driving, neurology following --Obesity; BMI 34.8 Patient advised weight reduction when medically stable --DVT prophylaxis; Lovenox Follow ID evaluation and recommendations Possible discharge in 1-2 days if stable Plan of care is reviewed with the patient and his nurse History Interval history: Patient seen and examined medical records reviewed No new episodes of seizures Pending lumbar puncture on Monday Alert awake oriented 3 vital signs noted Hospitalist Physical - Constitutional Vitals: Temp Pulse Resp BP Pulse Ox 98.0 F 49 L 18 113/65 97 04/06/19 05:56 04/06/19 05:56 04/06/19 05:56 04/06/19 05:56 04/06/19 05:56 General appearance: Present: no acute distress, well-nourished, obese - EENT Eyes: Present: PERRL, EOM intact - Neck Neck: Present: supple, normal ROM - Cardiovascular Rhythm: regular Heart Sounds: Present: S1 & S2 - Extremities Extremities: no ischemia, No edema - Abdominal General gastrointestinal: soft, non-tender, non-distended, normal bowel sounds - Integumentary Integumentary: Present: clear, warm - Psychiatric Psychiatric: appropriate mood/affect, cooperative - Neurologic Neurologic: CNII-XII intact, moves all extremities Results - Labs CBC & Chem 7: 04/04/19 04:06 04/05/19 Unknown Labs: Laboratory Last Values WBC 5.7 K/mm3 (4.5-11.0) 04/04/19 04:06 RBC 4.35 M/mm3 (3.65-5.03) 04/04/19 04:06 Hgb 13.3 gm/dl (11.8-15.2) 04/04/19 04:06 Hct 39.7 % (35.5-45.6) 04/04/19 04:06 MCV 92 fl (84-94) 04/04/19 04:06 MCH 31 pg (28-32) 04/04/19 04:06 MCHC 33 % (32-34) 04/04/19 04:06 RDW 13.7 % (13.2-15.2) 04/04/19 04:06 Plt Count 167 K/mm3 (140-440) 04/04/19 04:06 Lymph % (Auto) 31.2 % (13.4-35.0) 04/04/19 04:06 [place] % (Auto) 6.8 % (0.0-7.3) 04/04/19 04:06 Eos % (Auto) 4.6 % (0.0-4.3) H 04/04/19 04:06 Baso % (Auto) 0.4 % (0.0-1.8) 04/04/19 04:06 Lymph # 1.8 K/mm3 (1.2-5.4) 04/04/19 04:06 [place] # 0.4 K/mm3 (0.0-0.8) 04/04/19 04:06 Eos # 0.3 K/mm3 (0.0-0.4) 04/04/19 04:06 Baso # 0.0 K/mm3 (0.0-0.1) 04/04/19 04:06 Seg Neutrophils % 57.0 % (40.0-70.0) 04/04/19 04:06 Seg Neutrophils # 3.2 K/mm3 (1.8-7.7) 04/04/19 04:06 PT 13.4 Sec. (12.2-14.9) 04/05/19 15:16 INR 1.03 (0.87-1.13) 04/05/19 15:16 APTT 33.7 Sec. (24.2-36.6) 04/05/19 15:16 Sodium 140 mmol/L (137-145) 04/05/19 Unknown Potassium 4.5 mmol/L (3.6-5.0) 04/05/19 Unknown Chloride 107.3 mmol/L (98-107) H 04/05/19 Unknown Carbon Dioxide 22 mmol/L (22-30) 04/05/19 Unknown Anion Gap 15 mmol/L 04/05/19 Unknown BUN 11 mg/dL (9-20) 04/05/19 Unknown Creatinine 0.9 mg/dL (0.8-1.5) 04/05/19 Unknown Estimated GFR > 60 ml/min 04/05/19 Unknown BUN/Creatinine Ratio 12 % 04/05/19 Unknown Glucose 91 mg/dL (75-100) 04/05/19 Unknown POC Glucose 149 (70-105) H 04/03/19 11:25 Hemoglobin A1c 5.3 % (4-6) 04/03/19 13:45 Calcium 8.6 mg/dL (8.4-10.2) 04/05/19 Unknown Magnesium 2.00 mg/dL (1.7-2.3) 04/05/19 Unknown Total Bilirubin 0.30 mg/dL (0.1-1.2) 04/04/19 04:06 AST 34 units/L (5-40) 04/04/19 04:06 ALT 19 units/L (7-56) 04/04/19 04:06 Alkaline Phosphatase 77 units/L (35-129) 04/04/19 04:06 Total Protein 6.7 g/dL (6.3-8.2) 04/04/19 04:06 Albumin 3.8 g/dL (3.9-5) L 04/04/19 04:06 Albumin/Globulin Ratio 1.3 % 04/04/19 04:06 Urine Color Yellow (Yellow) 04/03/19 13:34 Urine Turbidity Clear (Clear) 04/03/19 13:34 Urine pH 6.0 (5.0-7.0) 04/03/19 13:34 Ur Specific [place] 1.015 (1.003-1.030) 04/03/19 13:34 Urine Protein <15 mg/dl mg/dL (Negative) 04/03/19 13:34 Urine Glucose (UA) Neg mg/dL (Negative) 04/03/19 13:34 Urine Ketones Neg mg/dL (Negative) 04/03/19 13:34 Urine Blood Neg (Negative) 04/03/19 13:34 Urine Nitrite Neg (Negative) 04/03/19 13:34 Urine Bilirubin Neg (Negative) 04/03/19 13:34 Urine Urobilinogen < 2.0 mg/dL (<2.0) 04/03/19 13:34 Ur Leukocyte Esterase Neg (Negative) 04/03/19 13:34 Urine WBC (Auto) 1.0 /HPF (0.0-6.0) 04/03/19 13:34 Urine RBC (Auto) 1.0 /HPF (0.0-6.0) 04/03/19 13:34 Urine Mucus Few /HPF 04/03/19 13:34 Urine Opiates Screen Presumptive negative 04/03/19 13:34 Urine Methadone Screen Presumptive negative 04/03/19 13:34 Ur Barbiturates Screen Presumptive negative 04/03/19 13:34 Ur Phencyclidine Scrn Presumptive negative 04/03/19 13:34 Ur Amphetamines Screen Presumptive negative 04/03/19 13:34 U Benzodiazepines Scrn Presumptive negative 04/03/19 13:34 Urine Cocaine Screen Presumptive negative 04/03/19 13:34 U Marijuana (THC) Screen Presumptive negative 04/03/19 13:34 Drugs of Abuse Note Disclamer 04/03/19 13:34 Plasma/Serum Alcohol < 0.01 % (0-0.07) 04/03/19 13:45 Syphilis IgG Antibody Non-reactive (NonReactive) 04/05/19 15:16 Active Medications - Current Medications Current Medications: Generic Name Dose Route Start Last Admin Trade Name Freq PRN Reason Stop Dose Admin Acetaminophen 650 mg 04/03/19 20:57 Tylenol PO Q4H PRN Pain MILD(1-3)/Fever >100.5/CAVAZOS Enoxaparin Sodium 40 mg 04/03/19 21:00 04/06/19 09:39 Enoxaparin SUB-Q 40 mg QDAY JHON Administration Hydromorphone HCl 0.5 mg 04/03/19 20:57 Dilaudid IV Q3H PRN Pain , Severe (7-10) Sodium Chloride 1,000 mls @ 75 mls/hr 04/03/19 21:00 04/05/19 17:12 Nacl 0.9% 1000 Ml IV 75 mls/hr DIRECT JHON Administration Levetiracetam 750 mg/ Dextrose 107.5 mls @ 400 mls/hr 04/03/19 22:00 04/05/19 21:32 IV 400 mls/hr Q12HR JHON Administration Acyclovir 750 mg/ Sodium 265 mls @ 265 mls/hr 04/06/19 15:00 Chloride IV Q8HR JHON Protocol Ondansetron HCl 4 mg 04/03/19 20:57 Zofran IV Q3H PRN Nausea And Vomiting Oxycodone/Acetaminophen 1 tab 04/03/19 20:57 Percocet 5/325 PO Q6H PRN Pain, Moderate (4-6) Sodium Chloride 10 ml 04/03/19 22:00 04/06/19 09:40 Sodium Chloride Flush Syringe 10 Ml IV 10 ml BID JHON Administration Sodium Chloride 10 ml 04/03/19 20:57 Sodium Chloride Flush Syringe 10 Ml IV PRN PRN LINE FLUSH Zolpidem Tartrate 5 mg 04/03/19 20:57 Ambien PO QHS PRN Insomnia
[2019-04-06] MEDS: levETIRAcetam 750 MG in DEXTROSE 5% IN WATER 100 ML IV SCH ×2 (10:37→22:10)
[2019-04-06] MEDS: SODIUM CHLORIDE 0.9% 1000 ML 1,000 ML IV SCH (14:07)
[2019-04-07] MEDS: ACYCLOVIR IV SCH ×3 (05:48→22:04)
[2019-04-07] MEDS: SODIUM CHLORIDE 0.9% IV SCH ×3 (05:48→22:04)
[2019-04-07] MEDS: ENOXAPARIN 40 MG/0.4 ML INJ SUB-Q SCH (09:15)
--- NOTE | 2019-04-07 09:47 | Progress Note ---
Assessment and Plan Assessment and plan: --Abnormal MRI findings; ? Herpetic encephalitis Consult ID, recommended lumbar puncture, IV acyclovir, Fl Lumbar puncture could not be done during the weekend Scheduled for tomorrow, nothing by mouth from midnight DC Aydinx Coag test negative --New-onset seizures; no new episodes since admission Seizure precautions, Keppra initiated by admitting physician Follow up neurology evaluation and recommendations EEG, no driving, neurology following --Obesity; BMI 34.8 Patient advised weight reduction when medically stable --DVT prophylaxis; Lovenox Follow consults and recommendations Follow LP and CSF analysis Plan of care is reviewed with the patient and his nurse History Interval history: Sincerely and examined medical records reviewed Patient feels better and wants to go home Denies any headache or dizziness, no new episodes of seizure Vital signs noted Hospitalist Physical - Constitutional Vitals: Temp Pulse Resp BP Pulse Ox 97.9 F 65 18 144/87 96 04/07/19 04:47 04/07/19 04:47 04/07/19 04:47 04/07/19 04:47 04/07/19 04:47 General appearance: Present: no acute distress, well-nourished, obese - EENT Eyes: Present: PERRL, EOM intact - Neck Neck: Present: supple, normal ROM - Respiratory Respiratory effort: normal Respiratory: bilateral: diminished, negative: rales, rhonchi, wheezing - Cardiovascular Rhythm: regular Heart Sounds: Present: S1 & S2 - Extremities Extremities: no ischemia, No edema - Abdominal General gastrointestinal: soft, non-tender, non-distended, normal bowel sounds - Integumentary Integumentary: Present: clear, warm - Psychiatric Psychiatric: appropriate mood/affect, cooperative - Neurologic Neurologic: moves all extremities Results - Labs CBC & Chem 7: 04/04/19 04:06 04/05/19 Unknown Labs: Laboratory Last Values WBC 5.7 K/mm3 (4.5-11.0) 04/04/19 04:06 RBC 4.35 M/mm3 (3.65-5.03) 04/04/19 04:06 Hgb 13.3 gm/dl (11.8-15.2) 04/04/19 04:06 Hct 39.7 % (35.5-45.6) 04/04/19 04:06 MCV 92 fl (84-94) 04/04/19 04:06 MCH 31 pg (28-32) 04/04/19 04:06 MCHC 33 % (32-34) 04/04/19 04:06 RDW 13.7 % (13.2-15.2) 04/04/19 04:06 Plt Count 167 K/mm3 (140-440) 04/04/19 04:06 Lymph % (Auto) 31.2 % (13.4-35.0) 04/04/19 04:06 [place] % (Auto) 6.8 % (0.0-7.3) 04/04/19 04:06 Eos % (Auto) 4.6 % (0.0-4.3) H 04/04/19 04:06 Baso % (Auto) 0.4 % (0.0-1.8) 04/04/19 04:06 Lymph # 1.8 K/mm3 (1.2-5.4) 04/04/19 04:06 [place] # 0.4 K/mm3 (0.0-0.8) 04/04/19 04:06 Eos # 0.3 K/mm3 (0.0-0.4) 04/04/19 04:06 Baso # 0.0 K/mm3 (0.0-0.1) 04/04/19 04:06 Seg Neutrophils % 57.0 % (40.0-70.0) 04/04/19 04:06 Seg Neutrophils # 3.2 K/mm3 (1.8-7.7) 04/04/19 04:06 PT 13.4 Sec. (12.2-14.9) 04/05/19 15:16 INR 1.03 (0.87-1.13) 04/05/19 15:16 APTT 33.7 Sec. (24.2-36.6) 04/05/19 15:16 Sodium 140 mmol/L (137-145) 04/05/19 Unknown Potassium 4.5 mmol/L (3.6-5.0) 04/05/19 Unknown Chloride 107.3 mmol/L (98-107) H 04/05/19 Unknown Carbon Dioxide 22 mmol/L (22-30) 04/05/19 Unknown Anion Gap 15 mmol/L 04/05/19 Unknown BUN 11 mg/dL (9-20) 04/05/19 Unknown Creatinine 0.9 mg/dL (0.8-1.5) 04/05/19 Unknown Estimated GFR > 60 ml/min 04/05/19 Unknown BUN/Creatinine Ratio 12 % 04/05/19 Unknown Glucose 91 mg/dL (75-100) 04/05/19 Unknown POC Glucose 149 (70-105) H 04/03/19 11:25 Hemoglobin A1c 5.3 % (4-6) 04/03/19 13:45 Calcium 8.6 mg/dL (8.4-10.2) 04/05/19 Unknown Magnesium 2.00 mg/dL (1.7-2.3) 04/05/19 Unknown Total Bilirubin 0.30 mg/dL (0.1-1.2) 04/04/19 04:06 AST 34 units/L (5-40) 04/04/19 04:06 ALT 19 units/L (7-56) 04/04/19 04:06 Alkaline Phosphatase 77 units/L (35-129) 04/04/19 04:06 Total Protein 6.7 g/dL (6.3-8.2) 04/04/19 04:06 Albumin 3.8 g/dL (3.9-5) L 04/04/19 04:06 Albumin/Globulin Ratio 1.3 % 04/04/19 04:06 Urine Color Yellow (Yellow) 04/03/19 13:34 Urine Turbidity Clear (Clear) 04/03/19 13:34 Urine pH 6.0 (5.0-7.0) 04/03/19 13:34 Ur Specific [place] 1.015 (1.003-1.030) 04/03/19 13:34 Urine Protein <15 mg/dl mg/dL (Negative) 04/03/19 13:34 Urine Glucose (UA) Neg mg/dL (Negative) 04/03/19 13:34 Urine Ketones Neg mg/dL (Negative) 04/03/19 13:34 Urine Blood Neg (Negative) 04/03/19 13:34 Urine Nitrite Neg (Negative) 04/03/19 13:34 Urine Bilirubin Neg (Negative) 04/03/19 13:34 Urine Urobilinogen < 2.0 mg/dL (<2.0) 04/03/19 13:34 Ur Leukocyte Esterase Neg (Negative) 04/03/19 13:34 Urine WBC (Auto) 1.0 /HPF (0.0-6.0) 04/03/19 13:34 Urine RBC (Auto) 1.0 /HPF (0.0-6.0) 04/03/19 13:34 Urine Mucus Few /HPF 04/03/19 13:34 Urine Opiates Screen Presumptive negative 04/03/19 13:34 Urine Methadone Screen Presumptive negative 04/03/19 13:34 Ur Barbiturates Screen Presumptive negative 04/03/19 13:34 Ur Phencyclidine Scrn Presumptive negative 04/03/19 13:34 Ur Amphetamines Screen Presumptive negative 04/03/19 13:34 U Benzodiazepines Scrn Presumptive negative 04/03/19 13:34 Urine Cocaine Screen Presumptive negative 04/03/19 13:34 U Marijuana (THC) Screen Presumptive negative 04/03/19 13:34 Drugs of Abuse Note Disclamer 04/03/19 13:34 Plasma/Serum Alcohol < 0.01 % (0-0.07) 04/03/19 13:45 Syphilis IgG Antibody Non-reactive (NonReactive) 04/05/19 15:16 Active Medications - Current Medications Current Medications: Generic Name Dose Route Start Last Admin Trade Name Freq PRN Reason Stop Dose Admin Acetaminophen 650 mg 04/03/19 20:57 Tylenol PO Q4H PRN Pain MILD(1-3)/Fever >100.5/CAVAZOS Hydromorphone HCl 0.5 mg 04/03/19 20:57 Dilaudid IV Q3H PRN Pain , Severe (7-10) Sodium Chloride 1,000 mls @ 75 mls/hr 04/03/19 21:00 04/06/19 14:07 Nacl 0.9% 1000 Ml IV 75 mls/hr DIRECT JHON Administration Levetiracetam 750 mg/ Dextrose 107.5 mls @ 400 mls/hr 04/03/19 22:00 04/06/19 22:10 IV 400 mls/hr Q12HR JHON Administration Acyclovir 750 mg/ Sodium 265 mls @ 265 mls/hr 04/06/19 15:00 04/07/19 05:48 Chloride IV 265 mls/hr Q8HR JHON Administration Protocol Ondansetron HCl 4 mg 04/03/19 20:57 Zofran IV Q3H PRN Nausea And Vomiting Oxycodone/Acetaminophen 1 tab 04/03/19 20:57 Percocet 5/325 PO Q6H PRN Pain, Moderate (4-6) Sodium Chloride 10 ml 04/03/19 22:00 04/07/19 09:19 Sodium Chloride Flush Syringe 10 Ml IV 10 ml BID JHON Administration Sodium Chloride 10 ml 04/03/19 20:57 Sodium Chloride Flush Syringe 10 Ml IV PRN PRN LINE FLUSH Zolpidem Tartrate 5 mg 04/03/19 20:57 Ambien PO QHS PRN Insomnia
[2019-04-07] MEDS: levETIRAcetam 750 MG in DEXTROSE 5% IN WATER 100 ML IV SCH ×2 (10:58→21:06)
[2019-04-07] MEDS: SODIUM CHLORIDE 0.9% 1000 ML 1,000 ML IV SCH (19:30)
[2019-04-08] MEDS: ACYCLOVIR IV SCH ×3 (05:33→21:07)
[2019-04-08] MEDS: SODIUM CHLORIDE 0.9% IV SCH ×3 (05:33→21:07)
--- NOTE | 2019-04-08 07:56 | Progress Note ---
Assessment and Plan Assessment and plan: Assessment and plan: 59-year-old male patient with no known past medical history not on any medications was admitted to the emergency room with weakness tonic-clonic seizures at work. Patient was started on antiseizure medications, seizure precautions, subsequently evaluated by a neurologist, recommended MRI brain which revealed, patchy lesions questionable for herpetic encephalitis. Evaluated by ID co nsultation was recommended lumbar punctures and fluid analysis. Patient is scheduled for LP today. Follow CSF fluid analysis, and ID and neurology recommendations. --Abnormal MRI findings; ? Herpetic encephalitis ID following, recommended lumbar puncture, IV acyclovir, Fl Lumbar puncture could not be done during the weekend Scheduled for today, nothing by mouth from midnight DC Lovenox, Coag test negative,rpt PT,PTT,INR,Pl let count --New-onset seizures; no new episodes since admission Seizure precautions, on Keppra Follow up neurology recommendations EEG reviewed, no driving. --Obesity; BMI 34.8 Patient advised weight reduction when medically stable --DVT prophylaxis; Lovenox Disposition; follow CSF fluid analysis ID and neurology recommendations. History Interval history: Patient seen and examined. No new complaints, No new episodes of seizures Vital signs stable Scheduled for Fl lumbar puncture today Hospitalist Physical - Constitutional Vitals: Temp Pulse Resp BP Pulse Ox 97.6 F 51 L 20 143/84 98 04/08/19 03:56 04/08/19 03:56 04/08/19 03:56 04/08/19 03:56 04/08/19 03:56 General appearance: Present: no acute distress, well-nourished, obese - EENT Eyes: Present: PERRL, EOM intact - Neck Neck: Present: supple, normal ROM - Respiratory Respiratory effort: normal Respiratory: negative: rales, rhonchi, wheezing - Cardiovascular Rhythm: regular Heart Sounds: Present: S1 & S2 - Extremities Extremities: no ischemia, No edema - Abdominal General gastrointestinal: soft, non-tender, non-distended, normal bowel sounds - Integumentary Integumentary: Present: clear, warm - Psychiatric Psychiatric: appropriate mood/affect, cooperative - Neurologic Neurologic: CNII-XII intact, moves all extremities Results - Labs CBC & Chem 7: 04/08/19 07:53 04/05/19 Unknown Labs: Laboratory Last Values WBC 5.7 K/mm3 (4.5-11.0) 04/04/19 04:06 RBC 4.35 M/mm3 (3.65-5.03) 04/04/19 04:06 Hgb 13.3 gm/dl (11.8-15.2) 04/04/19 04:06 Hct 39.7 % (35.5-45.6) 04/04/19 04:06 MCV 92 fl (84-94) 04/04/19 04:06 MCH 31 pg (28-32) 04/04/19 04:06 MCHC 33 % (32-34) 04/04/19 04:06 RDW 13.7 % (13.2-15.2) 04/04/19 04:06 Plt Count 167 K/mm3 (140-440) 04/04/19 04:06 Lymph % (Auto) 31.2 % (13.4-35.0) 04/04/19 04:06 [place] % (Auto) 6.8 % (0.0-7.3) 04/04/19 04:06 Eos % (Auto) 4.6 % (0.0-4.3) H 04/04/19 04:06 Baso % (Auto) 0.4 % (0.0-1.8) 04/04/19 04:06 Lymph # 1.8 K/mm3 (1.2-5.4) 04/04/19 04:06 [place] # 0.4 K/mm3 (0.0-0.8) 04/04/19 04:06 Eos # 0.3 K/mm3 (0.0-0.4) 04/04/19 04:06 Baso # 0.0 K/mm3 (0.0-0.1) 04/04/19 04:06 Seg Neutrophils % 57.0 % (40.0-70.0) 04/04/19 04:06 Seg Neutrophils # 3.2 K/mm3 (1.8-7.7) 04/04/19 04:06 PT 13.4 Sec. (12.2-14.9) 04/05/19 15:16 INR 1.03 (0.87-1.13) 04/05/19 15:16 APTT 33.7 Sec. (24.2-36.6) 04/05/19 15:16 Sodium 140 mmol/L (137-145) 04/05/19 Unknown Potassium 4.5 mmol/L (3.6-5.0) 04/05/19 Unknown Chloride 107.3 mmol/L (98-107) H 04/05/19 Unknown Carbon Dioxide 22 mmol/L (22-30) 04/05/19 Unknown Anion Gap 15 mmol/L 04/05/19 Unknown BUN 11 mg/dL (9-20) 04/05/19 Unknown Creatinine 0.9 mg/dL (0.8-1.5) 04/05/19 Unknown Estimated GFR > 60 ml/min 04/05/19 Unknown BUN/Creatinine Ratio 12 % 04/05/19 Unknown Glucose 91 mg/dL (75-100) 04/05/19 Unknown POC Glucose 149 (70-105) H 04/03/19 11:25 Hemoglobin A1c 5.3 % (4-6) 04/03/19 13:45 Calcium 8.6 mg/dL (8.4-10.2) 04/05/19 Unknown Magnesium 2.00 mg/dL (1.7-2.3) 04/05/19 Unknown Total Bilirubin 0.30 mg/dL (0.1-1.2) 04/04/19 04:06 AST 34 units/L (5-40) 04/04/19 04:06 ALT 19 units/L (7-56) 04/04/19 04:06 Alkaline Phosphatase 77 units/L (35-129) 04/04/19 04:06 Total Protein 6.7 g/dL (6.3-8.2) 04/04/19 04:06 Albumin 3.8 g/dL (3.9-5) L 04/04/19 04:06 Albumin/Globulin Ratio 1.3 % 04/04/19 04:06 Urine Color Yellow (Yellow) 04/03/19 13:34 Urine Turbidity Clear (Clear) 04/03/19 13:34 Urine pH 6.0 (5.0-7.0) 04/03/19 13:34 Ur Specific [place] 1.015 (1.003-1.030) 04/03/19 13:34 Urine Protein <15 mg/dl mg/dL (Negative) 04/03/19 13:34 Urine Glucose (UA) Neg mg/dL (Negative) 04/03/19 13:34 Urine Ketones Neg mg/dL (Negative) 04/03/19 13:34 Urine Blood Neg (Negative) 04/03/19 13:34 Urine Nitrite Neg (Negative) 04/03/19 13:34 Urine Bilirubin Neg (Negative) 04/03/19 13:34 Urine Urobilinogen < 2.0 mg/dL (<2.0) 04/03/19 13:34 Ur Leukocyte Esterase Neg (Negative) 04/03/19 13:34 Urine WBC (Auto) 1.0 /HPF (0.0-6.0) 04/03/19 13:34 Urine RBC (Auto) 1.0 /HPF (0.0-6.0) 04/03/19 13:34 Urine Mucus Few /HPF 04/03/19 13:34 Urine Opiates Screen Presumptive negative 04/03/19 13:34 Urine Methadone Screen Presumptive negative 04/03/19 13:34 Ur Barbiturates Screen Presumptive negative 04/03/19 13:34 Ur Phencyclidine Scrn Presumptive negative 04/03/19 13:34 Ur Amphetamines Screen Presumptive negative 04/03/19 13:34 U Benzodiazepines Scrn Presumptive negative 04/03/19 13:34 Urine Cocaine Screen Presumptive negative 04/03/19 13:34 U Marijuana (THC) Screen Presumptive negative 04/03/19 13:34 Drugs of Abuse Note Disclamer 04/03/19 13:34 Plasma/Serum Alcohol < 0.01 % (0-0.07) 04/03/19 13:45 Syphilis IgG Antibody Non-reactive (NonReactive) 04/05/19 15:16 Active Medications - Current Medications Current Medications: Generic Name Dose Route Start Last Admin Trade Name Freq PRN Reason Stop Dose Admin Acetaminophen 650 mg 04/03/19 20:57 Tylenol PO Q4H PRN Pain MILD(1-3)/Fever >100.5/CAVAZOS Hydromorphone HCl 0.5 mg 04/03/19 20:57 Dilaudid IV Q3H PRN Pain , Severe (7-10) Sodium Chloride 1,000 mls @ 75 mls/hr 04/03/19 21:00 04/07/19 19:30 Nacl 0.9% 1000 Ml IV 75 mls/hr DIRECT JHON Administration Levetiracetam 750 mg/ Dextrose 107.5 mls @ 400 mls/hr 04/03/19 22:00 04/07/19 21:06 IV 400 mls/hr Q12HR JHON Administration Acyclovir 980 mg/ Sodium 269.6 mls @ 150 mls/hr 04/07/19 22:00 04/08/19 05:33 Chloride IV 150 mls/hr Q8HR JHON Administration Protocol Ondansetron HCl 4 mg 04/03/19 20:57 Zofran IV Q3H PRN Nausea And Vomiting Oxycodone/Acetaminophen 1 tab 04/03/19 20:57 Percocet 5/325 PO Q6H PRN Pain, Moderate (4-6) Sodium Chloride 10 ml 04/03/19 22:00 04/07/19 21:06 Sodium Chloride Flush Syringe 10 Ml IV 10 ml BID JHON Administration Sodium Chloride 10 ml 04/03/19 20:57 Sodium Chloride Flush Syringe 10 Ml IV PRN PRN LINE FLUSH Zolpidem Tartrate 5 mg 04/03/19 20:57 Ambien PO QHS PRN Insomnia
[2019-04-08 08:32] LABS: INR 1.08 (0.87-1.13)
[2019-04-08 08:33] LABS: Partial Thromboplastin Time 27.2 Sec. (24.2-36.6)
[2019-04-08] MEDS ORDERED: LIDOCAINE (1%) 10 MG/1 ML VIAL 20 ML MDV ONE (10:06)
--- NOTE | 2019-04-08 11:56 | Procedure Note ---
Date of procedure: 04/08/19 Pre-op diagnosis: Seizure Post-op diagnosis: same Procedure: Fluoroscopically guided lumbar puncture. Findings: Please see dictation. Anesthesia: local Surgeon: MIMI LOGAN Estimated blood loss: none Pathology: list (Per primary team orders) Specimen disposition: to lab Condition: stable Disposition: floor
[2019-04-08] MEDS: levETIRAcetam 750 MG in DEXTROSE 5% IN WATER 100 ML IV SCH ×2 (12:00→21:58)
--- NOTE | 2019-04-08 12:08 | Fluoroscopy Report ---
Lumbar puncture INDICATION : Recent seizure, concern for infectious process PROCEDURE: The risks (including but not limited to bleeding, infection, and spinal headache) and jalen efits were explained to the patient and informed consent was obtained. A time out procedure was perf ormed. The procedure site was prepped and draped in the usual sterile fashion and lidocaine was used for local anesthesia. Under fluoroscopic guidance, a 22-gauge spinal needle was advanced into the L2/3 interlaminar space. 4 separate collection tubes were used to obtain 1, 1, 1, and 1 mL of CSF. Samples were sent to the la b per the ordering physician specifications for further evaluation. The patient tolerated the procedure well with no complications. IMPRESSION: 1. Successful lumbar puncture as outlined above. Fluoroscopic time: 0.9 minutes Number of fluoroscopic images: 2 Signer Name: José Miguel Chiu MD Signed: 04/08/2019 12:04 PM Workstation Name: [id number]
[2019-04-08 13:01] LABS: Appearance,CSF Clear; Red Blood Cell,CSF 1 /mm3 (0-0); White Blood Cell,CSF 1 /mm3 (1-10)
[2019-04-08 13:39] LABS: Basophils CSF 0 %; Total Cells Counted 11 /mm3
--- NOTE | 2019-04-08 14:24 | Progress Note ---
Assessment and Plan Cultures: none A/P: 59-year-old male with no past medical history who presented to the hospital on 04/03/2019 after he had a seizure while at work: 1) New onset seizure with temporal lobe enhancement: Has no fever or leucocytosis. Headache has been ongoing for several weeks. 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 LP done with 1 WBC, not indicative of infection. Would stop acyclovir and refer to neurosurgery. Recs: -LP is stock normal, though after a few days of acyclovir. Would stop acyclovir and going ahead with neurosurgery eval No barrier to discharge from infectious disease standpoint. Nat Stringer MD [facility] ([facility]) M: [phone] O: [phone] F: [phone] Subjective Date of service: 04/08/19 Principal diagnosis: Seizure Interval history: No acute complaints. Objective - Constitutional Vitals: Vital Signs Temp Pulse Resp BP Pulse Ox 98.1 F 46 L 16 170/76 98 04/08/19 12:47 04/08/19 12:45 04/08/19 12:45 04/08/19 12:45 04/08/19 12:45 Temperature -Last 24 Hours Temperature 98.1 F Temperature 97.6 F Temperature 98.3 F Temperature 98.1 F - Labs CBC & Chem 7: 04/08/19 07:53 04/05/19 Unknown
[2019-04-08] MEDS: SODIUM CHLORIDE 0.9% 1000 ML 1,000 ML IV SCH (16:21)
--- NOTE | 2019-04-08 18:36 | Consultation ---
Past History Past Medical History: No medical history Social history: Lives alone Family history: no significant family history Medications and Allergies Allergies Allergy/AdvReac Type Severity Reaction Status Date / Time No Known Allergies Allergy Unverified 04/03/19 13:12 Home Medications Medication Instructions Recorded Confirmed Last Taken Type No Known Home Medications [No 04/03/19 04/03/19 Unknown History Reported Home Medications] Active Meds: Active Medications Acetaminophen (Tylenol) 650 mg PO Q4H PRN PRN Reason: Pain MILD(1-3)/Fever >100.5/CAVAZOS Hydromorphone HCl (Dilaudid) 0.5 mg IV Q3H PRN PRN Reason: Pain , Severe (7-10) Sodium Chloride (Nacl 0.9% 1000 Ml) 1,000 mls @ 75 mls/hr IV DIRECT JHON Last Admin: 04/08/19 16:21 Dose: 75 mls/hr Documented by: Levetiracetam 750 mg/ Dextrose 107.5 mls @ 400 mls/hr IV Q12HR JHON Last Admin: 04/08/19 12:00 Dose: 400 mls/hr Documented by: Acyclovir 980 mg/ Sodium (Chloride) 269.6 mls @ 150 mls/hr IV Q8HR JHON; Protocol Last Admin: 04/08/19 15:30 Dose: 150 mls/hr Documented by: Levetiracetam (Keppra) 750 mg PO BID JHON Ondansetron HCl (Zofran) 4 mg IV Q3H PRN PRN Reason: Nausea And Vomiting Oxycodone/Acetaminophen (Percocet 5/325) 1 tab PO Q6H PRN PRN Reason: Pain, Moderate (4-6) Sodium Chloride (Sodium Chloride Flush Syringe 10 Ml) 10 ml IV BID JHON Last Admin: 04/08/19 09:00 Dose: 10 ml Documented by: Sodium Chloride (Sodium Chloride Flush Syringe 10 Ml) 10 ml IV PRN PRN PRN Reason: LINE FLUSH Zolpidem Tartrate (Ambien) 5 mg PO QHS PRN PRN Reason: Insomnia Physical Examination - Vital Signs Vital Signs: Vital Signs Temp Pulse Resp BP Pulse Ox 98 F 91 H 16 145/80 100 04/03/19 11:15 04/03/19 11:15 04/03/19 11:15 04/03/19 11:15 04/03/19 11:15 Results - Laboratory Findings CBC and BMP: 04/08/19 07:53 04/05/19 Unknown Abnormal Lab Findings: Abnormal Labs 04/03/19 04/03/19 04/03/19 11:25 13:45 13:45 Lymph % (Auto) 10.5 L Eos % (Auto) Lymph # 0.9 L Seg Neutrophils % 84.2 H Chloride Carbon Dioxide 21 L Glucose POC Glucose 149 H Albumin 04/04/19 04/04/19 04/05/19 04:06 04:06 Unknown Lymph % (Auto) Eos % (Auto) 4.6 H Lymph # Seg Neutrophils % Chloride 107.3 H Carbon Dioxide Glucose 101 H POC Glucose Albumin 3.8 L Assessment and Plan 59 YR OLD MALE WITH HISTORY OF NO SIGNIFICANT MEDICAL PROBLEM WHO DEVELOPED AN EPISODE OF GENERALIZED TONIC CLONIC SEIZURE WHICH LASTED FOR ABOUT ONE MINUTE. WHEN PATIENT WAS BROUGHT TO THE ER HE WAS STILL POST ICTAL WITH SIGNIFICANT LETHARGY. THIS IS THE FIRST EPISODE., PATIENT WAS STARTED ON IV KEPPRA AND THERE WAS NO RECURRENCE OF SEIZURE.WORK UP INCLUDING MRI SHOWED EDEMA AND INCREASED SIGNAL INTENSITY IN THE LEFT TEMPORAL LOBE WITH POSSIBILITIES BEING BRAIN TUMOR,LIMBIC ENCEPHALITIS OR HERPES. PATIENT DID COMPLAIN OF LEFT TEMPORAL HEADACHE IN FEW WEEKS PRECEDING THE SEIZURE. HAD LP UNDER FLUROSCOPY WHICH DID NOT SHOW ANY EVIDENCE OF VIRAL OR BACTERIAL INFECTION. PHYSICAL EXAMINATION. PATIENT IS ALERT AND ORIENTED TO PLACE PERSON AND TIME.HAS INSIGHT INTO HIS CONDITION AND ANSWERS QUESTIONS APPROPRIATELY. HEART-NORMAL RATE AND RHYTHM. CAROTIDS- BOTH PALPABLE, NO BRUIT. CRANIAL NERVES- ALL WITH IN NORMAL LIMIT MOTOR- NO ASYMMETRY OF STRENGTH IN THE EXTREMITIES AND STREGTH OF EXTREMITES BEING NORMAL ON BOTH SIDES. REFLEXES- NORMAL REFLEXES IN ALL FOUR EXTREMITIES. GAIT AND COORDINATION IS NORMAL IMPRESSION. 1 NEW ONSET OF SEIZURE WITH YET SOME UNKNOWN ABNORMALITY IN THE TEMPORAL LOBE, HERPES IS RULED OUT, DOES NOT SEEM LIKE LIMBING ENCEPHALITIS FROM THE HISTORY OF SYMPTOM ONSET AND OR PROGRESSION, LIKELY TO BE BRAIN TUMOR RECOMMEND 1. CONTINUE KEPPRA 750 MG PO BID 2. CONSULT NEURO SURGERY FOR BRAIN BIOPSY FOR ACCURATE TISSUE DIAGNOSIS 3. FURTHER MANAGEMENT DECISION DEPENDS ON FINDINGS OF BRAIN BIOPSY.
[2019-04-08] MEDS: levETIRAcetam 500 MG/5 ML ORAL LIQD PO SCH (21:07)
[2019-04-09] MEDS: SODIUM CHLORIDE 0.9% IV SCH (07:35)
[2019-04-09] MEDS: ACYCLOVIR IV SCH (07:35)
[2019-04-09] MEDS: levETIRAcetam 500 MG/5 ML ORAL LIQD PO SCH (11:14)
[2019-04-09 11:22] VITALS: BP 152/80
--- NOTE | 2019-04-09 11:40 | Progress Note ---
Assessment and Plan Cultures: none A/P: 59-year-old male with no past medical history who presented to the hospital on 04/03/2019 after he had a seizure while at work: 1) New onset seizure with temporal lobe enhancement: Has no fever or leucocytosis. Headache has been ongoing for several weeks. 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 LP done with 1 WBC, not indicative of infection. Would stop acyclovir and refer to neurosurgery. Recs: - LP is stock normal, though after a few days of acyclovir. Would stop acyclovir and going ahead with neurosurgery eval - No barrier to discharge from infectious disease standpoint. Nat Stringer MD [facility] ([facility]) M: [phone] O: [phone] F: [phone] Subjective Date of service: 04/09/19 Principal diagnosis: Seizure Interval history: No acute complaints. conversation is somewhat tangential, though unclear as to what his baseline is. Objective - Exam Narrative Exam: Constitutional: Alert, cooperative. No acute distress Head, Ears, Nose: Normocephalic, atraumatic. External ears, nose normal Eyes: Conjunctivae/corneas clear. No icterus. No ptosis. Neck: Supple, no meningeal signs Oral: dentition fair, no thrush Cardiovascular: S1, S2 normal. Respiratory: Good air entry, clear to auscultation bilaterally GI: Soft, non-tender; bowel sounds normal. No peritoneal signs. Musculoskeletal: No pedal edema, no cyanosis. Skin: No rash or abscess Hem/Lymphatic: No palpable cervical or supraclavicular nodes. No lymphangitis Psych: Mood ok. Affect normal Neurological: Awake, alert, oriented. No gross abnormality - Constitutional Vitals: Vital Signs Temp Pulse Resp BP Pulse Ox 99.6 F 58 L 20 152/80 96 04/09/19 11:20 04/09/19 11:20 04/09/19 11:20 04/09/19 11:20 04/09/19 11:20 Temperature -Last 24 Hours Temperature 99.6 F Temperature 98.0 F Temperature 97.6 F Temperature 98.4 F Temperature 98.1 F - Labs CBC & Chem 7: 04/08/19 07:53 04/05/19 Unknown
--- NOTE | 2019-04-09 11:55 | Discharge Summary ---
Providers - Providers Date of Admission: 04/05/19 09:42 Date of discharge: 04/09/19 Attending physician: GENEVIEVE SILVA 04/03/19 20:57 Consult to Physician [CONS] Routine Comment: Consulting Provider: EVERTON DORMAN Physician Instructions: Reason For Exam: new-onset seizure 04/05/19 14:26 Consult to Physician [CONS] Routine Comment: Consulting Provider: MOR BRIZUELA Physician Instructions: Reason For Exam: new onset Seizure /MRI ? herpetic encephalitis 04/08/19 07:50 Consult to Physician [CONS] Routine Comment: Consulting Provider: ELISA SÁNCHEZ Physician Instructions: Reason For Exam: Seizures/? herpetic encephalitis Primary care physician: ASSET ANALYST Hospitalization Condition: Critical Pertinent studies: Head CT, brain MRI: 1. Abnormal appearance of the mesial right temporal lobe with gyral swelling and edema as well as patchy areas of cortical enhancement. Given the appearance, herpetic encephalitis needs to be excluded by laboratory testing. Additionally, acyclovir should probably be administered pending laboratory results. Other considerations would include status epilepticus, limbic encephalitis, and mesial temporal lobe neoplasm. Procedures: Lumbar puncture with fluoroscopy Hospital course: 59-year-old male patient with no known past medical history not on any medications was admitted to the emergency room with weakness tonic-clonic seizures at work. Patient was started on antiseizure medications, seizure precautions, subsequently evaluated by a neurologist, recommended MRI brain which revealed patchy lesions questionable for herpetic encephalitis. Evaluated by ID consultation was recommended lumbar punctures and fluid analysis. s/p LP, but CHF study did not reveal any infectious process. ID recommended to discontinue antibiotics. Neurology recommended further neurosurgery follow-up for possible brain biopsy for abnormal MRI findings. Patient was transferred to follow up at [place] [facility] for further outpatient management. Patient was discharged home in stable condition with keppra twice a day, he was instructed not to drive for at least 6 month. Discharge diagnosis: --Abnormal MRI findings; ? Herpetic encephalitis ruled out Need further follow-up with neurosurgery as outpatient for possible brain biopsy Patient was referred to [place] [facility] --New-onset seizures; no new episodes since admission Placed on Seizure precautions, Keppra twice a day Neurologic consulted, EEG reviewed, no driving. Recommended further neurosurgery evaluation --Obesity; BMI 34.8 Patient advised weight reduction when medically stable --DVT prophylaxis; Lovenox Disposition: DC-01 TO HOME OR SELFCARE Time spent for discharge: 34 minutes Core Measure Documentation - Palliative Care Palliative Care/ Comfort Measures: Not Applicable - Core Measures Any of the following diagnoses?: none Exam - Constitutional Vitals: Temp Pulse Resp BP Pulse Ox 99.6 F 58 L 20 152/80 96 04/09/19 11:20 04/09/19 11:20 04/09/19 11:20 04/09/19 11:20 04/09/19 11:20 General appearance: Present: no acute distress, well-nourished - EENT Eyes: Present: PERRL ENT: hearing intact, clear oral mucosa - Neck Neck: Present: supple, normal ROM - Respiratory Respiratory effort: normal Respiratory: bilateral: CTA - Cardiovascular Heart Sounds: Present: S1 & S2. Absent: rub, click - Extremities Extremities: pulses symmetrical, No edema Peripheral Pulses: within normal limits - Abdominal General gastrointestinal: Present: soft, non-tender, non-distended, normal bowel sounds - Integumentary Integumentary: Present: clear, warm, dry - Musculoskeletal Musculoskeletal: gait normal, strength equal bilaterally - Psychiatric Psychiatric: appropriate mood/affect, intact judgment & insight - Neurologic Neurologic: CNII-XII intact, moves all extremities Plan Activity: advance as tolerated, no driving until cleared by PCP Weight Bearing Status: Weight Bear as Tolerated Diet: low fat, low salt Additional Instructions: Follow up at [place] [facility] in one week for referral to neurosurgeon for possible brain biopsy. Follow up with: PRIMARY MD ERVIN [Primary Care Provider] - 3-5 Days MOHSEN MONTGOMERY MD [Staff Physician] - 7 Days Prescriptions: levETIRAcetam [Keppra] 750 mg PO BID 30 Days levETIRAcetam [Keppra TAB] 750 mg PO BID #60 tablet
[2019-04-10 06:38] LABS: HIV-1 Antibody Differentiation SEE SCANNED RESULT; HIV-2 Antibody Differentiation SEE SCANNED RESULT
== END 2019-04-09 14:30 | disposition home or self-care (01) | DRG 101 ==
LOC: ED 11:07 → 3A 20:57 → OBSVTOIN 04-05 09:42
PROVIDERS: ADMIT Internal Medicine; ATTEND Internal Medicine
PROC: 009U3ZZ Drainage of Spinal Canal, Percutaneous Approach (ICD-10-PCS; principal; 2019-04-08)
PROC: B01B1ZZ Fluoroscopy of Spinal Cord using Low Osmolar Contrast (ICD-10-PCS; 2019-04-08)
DX: G40.89 Other seizures (principal); E66.9 Obesity, unspecified; Z60.2 Problems related to living alone; Z68.34 Body mass index [BMI] 34.0-34.9, adult; Z82.49 Family history of ischemic heart disease and other diseases of the circulatory system
CPT/HCPCS: 36415; 62270; 70450; 70553; 77003; 80048; 80053; 80307; 80320; 81001; 82947; 82962; 83036; 83735; 84160; 85025; 85049; 85610; 85730; 86592; 86689; 87498; 87799; 89051; 93005; 93010; 95819; 96365; 96372; 96375; G0378; A9577; G0480; J0133; J1650; J1953; J7030; J7050